=== PATIENT | female | born 1955 | race Native Hawaiian/Other Pacific Islander ===

== ENCOUNTER 2018-03-30 13:37 | Emergency (ER) | payer BC, MEDICAID ==
[2018-03-30 13:37] VITALS: BMI 27.4
[2018-03-30 13:52] VITALS: O2SAT 97
[2018-03-30] MEDS ORDERED: Tmp-Smz 800 mg-160 mg DS Tab PO STA (14:25)
[2018-03-30] MEDS ORDERED: Tmp-Smz 800 mg-160 mg DS Tab ONE (15:00)
[2018-03-30 15:05] LABS: URINE BILIRUBIN NEGATIVE (NEGATIVE); URINE BLOOD SMALL (NEGATIVE); URINE CLARITY CLEAR (Clear); URINE COLOR YELLOW (YELLOW); URINE GLUCOSE (UA) 50 mg/dL (Normal); URINE LEUKOCYTE ESTERASE NEG Leu/uL (Negative); URINE PROTEIN NEGATIVE (NEGATIVE); URINE UROBILINOGEN 0.2-1.0 mg/dL (0.2-1.0)
--- NOTE | 2018-03-30 15:10 | ED PDOC ---
HPI: Female Pain Time Seen by Provider: 03/30/18 13:56 Chief Complaint (Nursing): Female Genitourinary Chief Complaint (Provider): Urinary Retention History Per: Patient History/Exam Limitations: no limitations Onset/Duration Of Symptoms: Hrs (since 7am) Current Symptoms Are (Timing): Still Present Severity: Severe Pain Scale Rating Of: 9 Additional Complaint(s): 62 y/o female with a pmhx of pre-diabetes and HTN, presents for evaluation of lower abdominal pain associated with difficulty urinating since this morning. Patient states that her last urination was at 0700 and she has been unable to urinate since. She states that the same happened 6 years ago and she was [place] [facility] [place] Denies nausea, vomiting, fever, chills, or back pain, and vaginal bleeding. PMD: Dr. Gifford Past Medical History Reviewed: Historical Data, Nursing Documentation, Vital Signs Vital Signs: Last Vital Signs Temp 98.0 F 03/30/18 13:49 Pulse 96 H 03/30/18 13:49 Resp 16 03/30/18 13:49 BP 160/92 H 03/30/18 13:49 Pulse Ox 97 03/30/18 13:49 - Medical History PMH: HTN, Hypercholesterolemia Other PMH: Pre-diabetes - Surgical History Surgical History: Cholecystectomy (about 20 years ago) Other surgeries: Thyroidectomy - Family History Family History: States: Unknown Family Hx - Social History Current smoker - smoking cessation education provided: No Alcohol: None Drugs: Denies - Home Medications Home Medications: Ambulatory Orders Medication Instructions Recorded Acetaminophen with Codeine 1 tab PO Q4 PRN #30 tab 02/27/14 [Tylenol with Codeine No. 3 300 mg-30 mg] Allopurinol 1 tab PO DAILY #30 02/27/14 Losartan [Cozaar] 1 tab PO DAILY #30 02/27/14 Metformin HCl [Glumetza] 1 ter PO BID #60 02/27/14 Rosuvastatin Calcium [Crestor] 1 tab PO DAILY #30 02/27/14 Sulfamethoxazole/Trimethoprim 1 tab PO BID #14 tab 03/30/18 [Bactrim DS 800 mg-160 mg] - Allergies Allergies/Adverse Reactions: Allergies Allergy/AdvReac Type Severity Reaction Status Date / Time No Known Allergies Allergy Verified 03/30/18 13:49 Review of Systems ROS Statement: Except As Marked, All Systems Reviewed And Found Negative Constitutional: Negative for: Fever, Chills Gastrointestinal: Positive for: Abdominal Pain. Negative for: Nausea, Vomiting Genitourinary Female: Positive for: Other (retention). Negative for: Vaginal Bleeding Musculoskeletal: Negative for: Back Pain Physical Exam - Reviewed Nursing Documentation Reviewed: Yes Vital Signs Reviewed: Yes - Physical Exam Comments: GENERAL APPEARANCE: Patient is awake, alert, oriented x 3, tearful, in mild painful distress. SKIN: Warm, dry; (-) cyanosis. ENMT: Mucous membranes moist. Airway patent, (-) stridor NECK: Supple, FROM (-) tenderness, (-) stiffness, (-) lymphadenopathy. CHEST AND RESPIRATORY: (-) rales, (-) rhonchi, (-) wheezes; breath sounds equal bilaterally. Speaking in full sentences, respirations even and nonlabored. HEART AND CARDIOVASCULAR: (-) irregularity; (-) murmur, (-) gallop. ABDOMEN AND GI: (+) tenderness and distention of suprapubic abdomen. Bowel sounds active x4. (-) guarding, (-) rebound, (-) palpable masses, (-) CVA tenderness. EXTREMITIES: (-) deformity NEURO AND PSYCH: Mental status as above; (-) focal findings. Speech clear, gait steady. (-) facial asymmetry (-) aphasia - ECG O2 Sat by Pulse Oximetry: 97 (RA) Pulse Ox Interpretation: Normal Medical Decision Making Medical Decision Making: Initial Impression: Urinary retention Plan: -Bactrim 1 tab PO -Urine C&S -Kinsey Insertion -Bladder Scan -Urinalysis -Reevaluation Bladder scan revealed 1176ccs of urine. After kinsey placement, patient reports immediate resolution of symptoms. 1520 Kinsey catheter with output of 1400cc urine Consult placed to urologist pallet stone positioner, Dr Taet to arrange follow up. [address] Tate, who states the patient has to call his office tomorrow to arrange a follow up appointment. Agreeable to sending patient home with leg bag. Urinalysis reviewed, (-) no evidence of UTI. Urine culture pending. Leg bag ordered. On re-evaluation, patient reports resolution of symptoms. On exam, patient remains AAOx3, in no acute distress. Lungs clear to auscultation, cardiac RRR, abdomen soft, non-tender, repeat neuro exam shows no focal findings. Repeat HR: 95 Repeat BP: 135/91 Vitals stable, stable for discharge. Lab/Diagnostic results d/w the patient in great detail. Diagnosis of urinary retention d/w the patient. Based on history, exam and diagnostic results, plan will be for outpatient follow up with urology. Patient instructed to follow-up with pmd / referral provided / the clinic in 1- 2 days without fail. Advised to take medication as prescribed. Return to the emergency room at any time for any new or worsening symptoms. Patient states she fully agrees with and understands discharge instructions. States that she agrees with the plan and disposition. Verbalized and repeated discharge instructions and plan. I have given the patient opportunity to ask any additional questions. -- Scribe Attestation: Documented by Black Delgado, acting as a scribe for Pili López PA-C. Provider Scribe Attestation: All medical record entries made by the Scribe were at my direction and personally dictated by me. I have reviewed the chart and agree that the record accurately reflects my personal performance of the history, physical exam, medical decision making, and the department course for this patient. I have also personally directed, reviewed, and agree with the discharge instructions and disposition. Disposition - Clinical Impression Clinical Impression: Urinary retention - Patient ED Disposition Is Patient to be Admitted: No Discussed With Dr.: Cali Tate Comment: pt advised to call office tomorrow to arrange follow up Doctor Will See Patient In The: Office Counseled Patient/Family Regarding: Studies Performed, Diagnosis, Need For Followup, Rx Given - Disposition Referrals: Cali Tate MD [Medical Doctor] - Disposition: Routine/Home Disposition Time: 15:50 Condition: FAIR Additional Instructions: CALL DR TATE'S OFFICE TOMORROW TO ARRANGE A FOLLOW UP APPOINTMENT. TAKE ANTIBIOTICS UNTIL COMPLETE. RETURN TO ED WITH ANY NEW OR WORSENING SYMPTOMS. Prescriptions: Sulfamethoxazole/Trimethoprim [Bactrim DS 800 mg-160 mg] 1 tab PO BID #14 tab Instructions: Kinsey Catheter, Female, Urinary Retention Forms: [employer] (Ukrainian) Print Language: HONG KONGER - POA Present On Arrival: None Results - Lab Results Lab Results: 03/30/18 14:55 Urine Color Yellow Urine Clarity Clear Urine pH 6.0 Ur Specific [place] 1.006 Urine Protein Negative Urine Glucose (UA) 50 Urine Ketones Negative Urine Blood Small Urine Nitrate Negative Urine Bilirubin Negative Urine Urobilinogen 0.2-1.0 Ur Leukocyte Esterase Neg Urine RBC (Auto) 4 H Urine Microscopic WBC < 1
[2018-03-30 16:37] VITALS: BP 135/91; PULSE 95; RESP 20; TEMP 99.1
== END 2018-03-30 16:30 | disposition home or self-care (01) ==
LOC: H.ER 13:37
DX: R33.9 Retention of urine, unspecified (principal); I10 Essential (primary) hypertension; E78.00 Pure hypercholesterolemia, unspecified; R73.03 Prediabetes